=== PATIENT | male | born 1990 | race Caucasian/White ===

== ENCOUNTER → 2017-10-15 | Outpatient (CLI) | payer OTHER ==
--- NOTE | 2017-10-18 07:45 | MAMMOGRAPHY REPORT ---
MALE BILATERAL DIGITAL DIAGNOSTIC MAMMOGRAM WITH CAD AND TARGETED BILATERAL ULTRASOUND: 10/15/2017 CLINICAL HISTORY: The patient reports increased tenderness and puffiness in bilateral nipple regions. TECHNIQUE: The study was acquired using full field digital technology and interpreted from soft copy. Current study was also evaluated with a Computer Aided Detection (CAD) system. Bilateral CC and MLO views were obtained. COMPARISON: No prior exams were available for comparison. BREAST COMPOSITION: The tissue of both breasts is predominately fatty. FINDINGS: A triangle marker madden the site of a palpable lump pointed out by the patient in the right lateral breast. There is moderate fibroglandular tissue seen within bilateral breasts, centered anthony und the subareolar regions, consistent with gynecomastia. There are no suspicious masses, calcificat ions, or areas of architectural distortion noted in either breast mammographically. Targeted ultrasound was performed of the area of the palpable lump pointed out by the patient in the right 8 to 9:00 periareolar breast, as well as in bilateral subareolar and periareolar regions. Ther e is mixed echogenicity tissue in bilateral subareolar and periareolar breasts, consistent with gynec omastia. This accounts for the palpable lump felt by the patient. No suspicious masses or other micaela picious sonographic abnormalities are evident. IMPRESSION: , ULTRASOUND ACR BI-RADS CATEGORY 2: BENIGN Moderate gynecomastia bilaterally, with no evidence of malignancy in either breast. Recommend clinic al follow-up as to possible underlying cause. The patient has been verbally notified of the results. Some breast cancers are not detected with mammography. A negative mammographic report should not monique y biopsy if a clinically suggestive mass is present. Brii Varela M.D. ah/:10/15/2017 11:32:33 [employer] Tenn[employer]: RT Annie(R)(M), [facility]; Brii Varela MD, [facility] letter sent: Normal 1/2 OVERALL STUDY BIRADS: 2 Benign
== END | disposition home or self-care (01) ==
LOC: C.MAMM 08:41
PROVIDERS: ATTEND Family Medicine
DX: N62 Hypertrophy of breast (principal); N63.20 Unspecified lump in the left breast, unspecified quadrant; N63.10 Unspecified lump in the right breast, unspecified quadrant

== ENCOUNTER → 2017-10-20 | Outpatient (CLI) | payer OTHER | END | disposition home or self-care (01) | LOC: C.LABPVFM 13:13 | PROVIDERS: ATTEND Family Medicine | DX: N62 Hypertrophy of breast (principal) ==